=== PATIENT | female | born 1995 | race African-American/Black ===

== ENCOUNTER 2017-07-18 15:03 | Emergency (ER) | payer OTHER ==
[~2017-07-18] VITALS: Ht 160 cm; Wt 66.2 kg
[~2017-07-18 15:03] MED LIST: DOXY1LIQ PO; IBUP-1050 PO; NAPR1TAB9 PO
[2017-07-18 15:08] VITALS: TEMP 36.6; Ht 160 cm; Wt 66.2 kg
[2017-07-18] MEDS ORDERED: KETOROLAC TROMETHAMINE 30 MG/ML VIAL IV STA (15:31)
--- NOTE | 2017-07-18 15:41 | EMERGENCY ROOM VISIT NOTE ---
History Report prepared by Codi: Ivis Reynoso Under the Supervision of: Dr. Netta Barbour M.D. First contact with patient: 15:19 Chief Complaint: ABDOMINAL PAIN Stated Complaint: PAIN IN ABD AREA History of Present Illness The patient is a 21 year old female who presents to the Emergency Room with complaints of constant abdominal pain beginning an hour ago. The patient reports she was having a bowel movement when her pain started. She states her abdomen feels like it has "knots" in it. She states her bowel movement was normal and she denies any vaginal bleeding. Her last bowel before today was two days ago. The patient's last menstrual period was June 25. She denies any chance of . The patient takes control and denies missing any pills. Source of History: patient Onset: an hour ago Position: abdomen Timing: constant Associated Symptoms: + abdominal pain Review of Systems See HPI for pertinent positives & negatives. A total of 10 systems reviewed and were otherwise negative. Past Medical & Surgical Medical Problems: (1) History of strep sore throat Family History Diabetes mellitus Hypertension Social History Smoking Status: Never Smoker Alcohol Use: occasionally Marital Status: single Housing Status: lives with roommate Occupation Status: [employer] Current/Historical Medications Scheduled Control Pills ( Control Pills), 1 TAB PO DAILY Multivitamins/Minerals (Mvi With Minerals), 1 TAB PO DAILY Allergies Coded Allergies: No Known Allergies (Unverified , 07/18/16) Physical Exam Vital Signs Date Time Temp Pulse Resp B/P (MAP) Pulse Ox O2 Delivery O2 Flow Rate FiO2 07/18/17 17:15 70 18 116/68 100 Room Air 07/18/17 15:08 36.6 67 18 150/81 99 Room Air Physical Exam Vital signs reviewed. General: Well-appearing female, in no significant distress. HEENT: No scleral icterus, PERRLA, neck supple. Atraumatic. Cardiovascular: Regular rate and rhythm, no extra sounds. Pulmonary: Clear to auscultation bilaterally, normal work of breathing. Abdomen: Tender to the suprapubic area. Soft, nondistended, positive bowel sounds. Musculoskeletal: Atraumatic, no peripheral edema. Neurologic: Patient awake alert and oriented x 3 Skin: Warm, dry, no rash Medical Decision & Procedures ER Provider Diagnostic Interpretation: Radiology results as stated below per my review and radiologist interpretation: PELVIC COMPLETE NON OB FINDINGS: TRANSABDOMINAL: Anteflexed uterus measures 6.9 x 3.3 x 3.8 cm. TRANSVAGINAL: Endometrium measures 7 mm in thickness. Right ovary measures 3.0 x 4.9 x 2.7 cm and demonstrates arterial inflow and venous outflow. Thick-walled complex cystic lesion which demonstrates decreased echogenicity centrally is noted within the right ovary, 3.7 x 1.6 x 2.9 cm with peripheral vascularity suggesting hemorrhagic cyst. Left ovary measures 2.4 x 1.3 x 1.8 cm and is unremarkable with arterial inflow documented. No left ovarian mass lesions identified. Moderate amount of complex free fluid is noted within the pelvis. IMPRESSION: 1. Complex cystic lesion of the right ovary measuring up to 3.7 cm suggest hemorrhagic ovarian cyst. No evidence of ovarian torsion. 2. Moderate amount of complex free fluid within the pelvis may be from recently ruptured cyst. 3. Unremarkable sonographic appearance of the left ovary, uterus and endometrium. The above report was generated using voice recognition software. It may contain grammatical, syntax or spelling errors. Electronically signed by: Castillo Chambers M.D. Laboratory Results 07/18/17 16:22 Red Blood Count 4.56, Mean Corpuscular Volume 85.5, Mean Corpuscular Hemoglobin 29.4, Mean Corpuscular Hemoglobin Concent 34.4, Mean Platelet Volume 10.7, Neutrophils (%) (Auto) 65.6, Lymphocytes (%) (Auto) 20.9, Monocytes (%) (Auto) 11.3, Eosinophils (%) (Auto) 1.7, Basophils (%) (Auto) 0.3, Neutrophils # (Auto ) 6.02, Lymphocytes # (Auto) 1.92, Monocytes # (Auto) 1.04, Eosinophils # (Auto ) 0.16, Basophils # (Auto) 0.03 07/18/17 16:22 Test 07/18/17 15:25 07/18/17 16:22 Urine Color YELLOW Urine Appearance CLEAR (CLEAR) Urine pH 5.0 (4.5-7.5) Urine Specific [place] 1.020 (1.000-1.030) Urine Protein NEG (NEG) Urine Glucose (UA) NEG (NEG) Urine Ketones TRACE (NEG) Urine Occult Blood 2+ (NEG) Urine Nitrite NEG (NEG) Urine Bilirubin NEG (NEG) Urine Urobilinogen NEG (NEG) Urine Leukocyte Esterase NEG (NEG) Urine WBC (Auto) 1-5 /hpf (0-5) Urine RBC (Auto) 0-4 /hpf (0-4) Urine Hyaline Casts (Auto) 0 /lpf (0-5) Urine Epithelial Cells (Auto) 10-20 /lpf (0-5) Urine Bacteria (Auto) NEG (NEG) Urine Test NEG (NEG) White Blood Count 9.19 K/uL (4.8-10.8) Red Blood Count 4.56 M/uL (4.2-5.4) Hemoglobin 13.4 g/dL (12.0-16.0) Hematocrit 39.0 % (37-47) Mean Corpuscular Volume 85.5 fL (80-100) Mean Corpuscular Hemoglobin 29.4 pg (25-34) Mean Corpuscular Hemoglobin Concent 34.4 g/dl (32-36) Platelet Count 209 K/uL (130-400) Mean Platelet Volume 10.7 fL (7.4-10.4) Neutrophils (%) (Auto) 65.6 % Lymphocytes (%) (Auto) 20.9 % Monocytes (%) (Auto) 11.3 % Eosinophils (%) (Auto) 1.7 % Basophils (%) (Auto) 0.3 % Neutrophils # (Auto) 6.02 K/uL (1.4-6.5) Lymphocytes # (Auto) 1.92 K/uL (1.2-3.4) Monocytes # (Auto) 1.04 K/uL (0.11-0.59) Eosinophils # (Auto) 0.16 K/uL (0-0.5) Basophils # (Auto) 0.03 K/uL (0-0.2) RDW Standard Deviation 37.2 fL (36.4-46.3) RDW Coefficient of Variation 11.9 % (11.5-14.5) Immature Granulocyte % (Auto) 0.2 % Immature Granulocyte # (Auto) 0.02 K/uL (0.00-0.02) Anion Gap 0.8 mmol/L (3-11) Est Creatinine Clear Calc Drug Dose 94.6 ml/min Estimated GFR () 111.9 Estimated GFR (Non- 96.6 BUN/Creatinine Ratio 10.6 (10-20) Calcium Level 8.8 mg/dl (8.5-10.1) Total Bilirubin 0.4 mg/dl (0.2-1) Direct Bilirubin 0.1 mg/dl (0-0.2) Aspartate Amino Transf (AST/SGOT) 18 U/L (15-37) Alanine Aminotransferase (ALT/SGPT) 22 U/L (12-78) Alkaline Phosphatase 54 U/L (45-117) Total Protein 7.6 gm/dl (6.4-8.2) Albumin 3.4 gm/dl (3.4-5.0) Laboratory results per my review. Medications Administered Medications (Trade) Dose Ordered Sig/Elian Route Start Time Stop Time Status Last Admin Dose Admin Ketorolac Tromethamine (Toradol Inj) 30 mg NOW STAT IV 07/18/17 15:31 07/18/17 15:34 DC 07/18/17 16:03 30 MG ED Course 1530: Past medical records reviewed. The patient was evaluated in room B3B. A complete history and physical examination was performed. 153: Ordered Toradol Inj 30 mg IV. 1745: I updated the patient on her test results. 1758: Upon reevaluation, the patient appeared to have improvement of her symptoms. I discussed findings with she. The patient verbalized agreement of the treatment plan. She was discharged home. Medical Decision Differential diagnosis: Etiologies such as appendicitis, diverticulitis, PUD, biliary pathology, UTI, pancreatitis, obstruction, mesenteric ischemia, aortic pathology, infections, inflammatory bowel disease, renal colic, as well as others were entertained. This patient was evaluated and appeared to be in no significant distress. His examination reveals some lower abdominal tenderness. Pelvic ultrasound is consistent with a hemorrhagic ovarian cyst. Patient's laboratory work is fairly unrevealing. test is negative. UA is negative for infection. Patient was given IV Toradol with significant improvement in her symptoms. She will continue ibuprofen as needed for pain. She was advised to follow-up with [facility] in the next 1-2 weeks and return to the ER for worsening of symptoms or any medical concerns. Medication Reconcilliation Current Medication List: was personally reviewed by me Blood Pressure Screening Patient's blood pressure: Normal blood pressure Impression Primary Impression: Hemorrhagic ovarian cyst Scribe Attestation The scribe's documentation has been prepared under my direction and personally reviewed by me in its entirety. I confirm that the note above accurately reflects all work, treatment, procedures, and medical decision making performed by me. Departure Information Dispostion Home / Self-Care Referrals [facility] (PCP) Forms HOME CARE DOCUMENTATION FORM, IMPORTANT VISIT INFORMATION Patient Instructions Cyst Ruptured Ovarian Tx, My [facility] Additional Instructions Diagnosis: Hemorrhagic ovarian cyst Ibuprofen 600 mg every 6 hours as needed for pain with food. Plenty of clear fluids. Follow-up with gynecology in the next 1-2 weeks for reevaluation. Return to the emergency department for worsening of symptoms or any medical concerns.
[2017-07-18 15:53] LABS: URINE APPEARANCE CLEAR (CLEAR); URINE BILIRUBIN NEG (NEG); URINE COLOR YELLOW; URINE NITRITE NEG (NEG); UROBILINOGEN NEG (NEG); ZZUR CULT IF INDIC CLEAN CATCH NO
[2017-07-18 16:00] LABS: MANUAL MICROSCOPIC REQUIRED? NO; REVIEW REQ? NO
[2017-07-18] MEDS ORDERED: MULT-513 PO (16:17)
[2017-07-18 16:48] LABS: BASO % 0.3 %; BASO ABS # 0.03 K/uL (0-0.2); COMPLETE YES; EOS % 1.7 %; IG% 0.2 %; LYMPH % 20.9 %; LYMPH ABS # 1.92 K/uL (1.2-3.4); MEAN CELL VOLUME 85.5 fL (80-100); MEAN CORPUSCULAR HEMOGLOBIN 29.4 pg (25-34); MEAN CORPUSCULAR HGB CONC 34.4 g/dl (32-36); MEAN PLATELET VOLUME 10.7 fL (7.4-10.4); MONO % 11.3 %; NEUT % 65.6 %; PLATELET COUNT 209 K/uL (130-400); RED BLOOD COUNT 4.56 M/uL (4.2-5.4); WHITE BLOOD COUNT 9.19 K/uL (4.8-10.8)
--- NOTE | 2017-07-18 17:09 | DIAGNOSTIC IMAGING REPORT ---
PELVIC COMPLETE NON OB HISTORY: 21 years-old Female ovarian cyst acute lower abdominal pain with concern for ovarian cysts COMPARISON: None available TECHNIQUE: Multiple real-time sonographic images of the deep pelvic structures were obtained transabdominally and transvaginally assessing grayscale appearance, color and spectral flow FINDINGS: TRANSABDOMINAL: Anteflexed uterus measures 6.9 x 3.3 x 3.8 cm. TRANSVAGINAL: Endometrium measures 7 mm in thickness. Right ovary measures 3.0 x 4.9 x 2.7 cm and demonstrates arterial inflow and venous outflow. Thick-walled complex cystic lesion which demonstrates decreased echogenicity centrally is noted within the right ovary, 3.7 x 1.6 x 2.9 cm with peripheral vascularity suggesting hemorrhagic cyst. Left ovary measures 2.4 x 1.3 x 1.8 cm and is unremarkable with arterial inflow documented. No left ovarian mass lesions identified. Moderate amount of complex free fluid is noted within the pelvis. IMPRESSION: 1. Complex cystic lesion of the right ovary measuring up to 3.7 cm suggest hemorrhagic ovarian cyst. No evidence of ovarian torsion. 2. Moderate amount of complex free fluid within the pelvis may be from recently ruptured cyst. 3. Unremarkable sonographic appearance of the left ovary, uterus and endometrium. The above report was generated using voice recognition software. It may contain grammatical, syntax or spelling errors. Electronically signed by: Castillo Chambers M.D. 07/18/2017 5:07 PM Dictated Date/Time: 07/18/2017 5:04 PM
[2017-07-18 17:15] VITALS: BP 116/68; PULSE 70; O2SAT 100
[2017-07-18 17:25] LABS: POTASSIUM 3.7 mmol/L (3.5-5.1)
[2017-07-18 18:11] LABS: BUN/CREATININE RATIO 10.6 (10-20); CALCIUM 8.8 mg/dl (8.5-10.1); CREATININE 0.86 mg/dl (0.60-1.20)
[2017-07-18 18:23] LABS: ANION GAP 0.8 mmol/L (3-11)
[2017-07-18] MEDS ORDERED: BCPILLS PO (22:59)
== END 2017-07-18 18:07 | disposition home or self-care (01) ==
LOC: C.EDB 15:04
DX: N83.201 Unspecified ovarian cyst, right side (principal); Z83.3 Family history of diabetes mellitus; Z82.49 Family history of ischemic heart disease and other diseases of the circulatory system; Z79.3 Long term (current) use of hormonal contraceptives